=== PATIENT | male | born 1990 | race African-American/Black ===

== ENCOUNTER 2020-06-04 03:29 | Emergency (ER) | payer OTHER ==
[~2020-06-04] VITALS: Ht 188 cm; Wt 81.7 kg
[2020-06-04] MEDS ORDERED: ALLEGRA-D 12 H1 EAC1 PO (03:36)
[2020-06-04 04:55] LABS: ABSOLUTE NEUTROPHILS 5.1 thou/uL (1.4-8.2); BASOPHILS 0.7 % (0.0-2.0); HEMATOCRIT 45.9 % (42.0-52.0); LYMPHOCYTES 19.1 % (24.0-44.0); MCH 30.8 pg (26.0-34.0); MCHC 34.8 g/dL (28.0-37.0); MCV 88.4 fL (80.0-100.0); MONOCYTES 6.4 % (1.0-8.0); PLATELET COUNT 236 thou/uL (150-400); POLYS 72.8 % (36.0-66.0)
[2020-06-04 04:59] LABS: ANION GAP 15 mmol/L (7-16); BUN 11 mg/dL (7-18); CALCIUM 8.8 mg/dL (8.5-10.1); CHLORIDE 102 mmol/L (98-107); CO2 21 mmol/L (21-32); CREATININE 1.1 mg/dL (0.7-1.3); GLUCOSE 126 mg/dL (74-106); SODIUM 138 mmol/L (136-145)
[2020-06-04 05:09] LABS: ALBUMIN 3.9 g/dL (3.4-5.0); SGOT 21 U/L (15-37); SGPT 25 U/L (30-65); TOTAL BILIRUBIN 0.9 mg/dL (0.2-1.0); TOTAL PROTEIN 7.6 g/dL (6.4-8.2); TROPONIN-I <0.06 ng/mL (<0.06)
[2020-06-04 05:48] VITALS: BP 114/70
--- NOTE | 2020-06-04 08:06 | EKG ---
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
== END 2020-06-04 05:55 | disposition home or self-care (01) ==
LOC: ER 03:29
PROVIDERS: Emergency Medicine
DX: R07.89 Other chest pain (principal); E87.6 Hypokalemia; K21.9 Gastro-esophageal reflux disease without esophagitis; Z79.899 Other long term (current) drug therapy; Z88.8 Allergy status to other drugs, medicaments and biological substances